=== PATIENT | male | born 1960 | race Caucasian/White ===

== ENCOUNTER 2023-02-16 17:13 | Emergency (ER) | payer MEDICAID | END 2023-02-16 19:04 | disposition home or self-care (01) | LOC: JP.ED 17:13 | DX: S97.82XA Crushing injury of left foot, initial encounter (principal); M79.671 Pain in right foot; Z79.899 Other long term (current) drug therapy; W20.8XXA Other cause of strike by thrown, projected or falling object, initial encounter | CPT/HCPCS: 73630-26-LT; 73630-LT; 99283 ==